=== PATIENT | male | born 1965 | race Caucasian/White ===

== ENCOUNTER 2016-03-21 19:52 | Emergency (ER) | payer MEDICAID ==
[~2016-03-21] VITALS: Ht 190.5 cm; Wt 104.5 kg
[~2016-03-21 19:52] MED LIST: ACET500C4 PO; ANUSHCS PR; APIX5TAB PO; CAPT12.55 PO; CARV6 PO; DIGO125T PO; LOSA25TA21 PO; PALI1.5T PO
[2016-03-21] MEDS ORDERED: PALI78DI IM (20:14)
[2016-03-21 22:14] VITALS: BP 124/71
== END 2016-03-21 22:51 | disposition home or self-care (01) ==
LOC: EMS 20:09
DX: Z76.0 Encounter for issue of repeat prescription (principal); F20.9 Schizophrenia, unspecified; F17.210 Nicotine dependence, cigarettes, uncomplicated; I11.0 Hypertensive heart disease with heart failure; I50.9 Heart failure, unspecified; J44.9 Chronic obstructive pulmonary disease, unspecified; E78.00 Pure hypercholesterolemia, unspecified; Z88.0 Allergy status to penicillin; Z91.040 Latex allergy status
CPT/HCPCS: 99283

== ENCOUNTER 2016-04-16 11:50 | Emergency (ER) | payer MEDICAID ==
[~2016-04-16] VITALS: Ht 182.9 cm; Wt 70.0 kg
[~2016-04-16 11:50] MED LIST changes: -ACET500C4 PO; -ANUSHCS PR; -PALI1.5T PO; +PALI78DI IM
[2016-04-16 13:19] LABS: BASOPHILS % (AUTO) 0.3 % (0.0-2.0); EOSINOPHILS % (AUTO) 0.3 % (1.0-6.0); HEMATOCRIT 44.2 % (41-53); HEMOGLOBIN 14.3 g/dL (13.5-17.5); LYMPHOCYTES # (AUTO) 2.2 K/uL (1.0-4.8); LYMPHOCYTES % (AUTO) 25.6 % (22.0-44.0); MEAN CORPUSCULAR HEMOGLOBIN 30.8 pg (26.0-34.0); MEAN CORPUSCULAR HGB CONC 32.4 G/dL (31.0-37.0); MEAN CORPUSCULAR VOLUME 95 fL (80-100); MONOCYTES # (AUTO) 0.8 K/uL (0.1-1.0); MONOCYTES % (AUTO) 9.1 % (2.0-9.0); NEUTROPHILS # (AUTO) 5.7 K/uL (1.8-7.7); NEUTROPHILS % (AUTO) 64.7 % (40.0-70.0); PLATELET COUNT (AUTO) 208 K/uL (150-450); RED BLOOD CELL COUNT(AUTO) 4.66 MIL/uL (4.50-5.90); RED CELL DISTRIBUTION WIDTH 13.4 % (11.5-14.5); WHITE BLOOD COUNT (AUTO) 8.8 K/uL (4.5-11.0)
[2016-04-16 13:27] LABS: ANION GAP 2 mmol/L (8-16); CALCIUM, TOTAL 8.5 mg/dL (8.8-10.5); CARBON DIOXIDE 31 mmol/L (22-29); CHLORIDE 104 mmol/L (98-107); CREATININE 1.14 mg/dL (0.60-1.30); GLOMERULAR FILTR. RATE CALC > 60 mL/min (>60); POTASSIUM 4.1 mmol/L (3.5-5.1); SODIUM SERUM 137 mmol/L (136-145); UREA NITROGEN, BLOOD 29 mg/dL (7-18)
[2016-04-16 13:31] LABS: INR 1.1 (0.9-1.1); PROTHROMBIN TIME 11.3 SEC (9.4-11.6)
[2016-04-16 13:33] LABS: ALANINE AMINOTRANSFERASE 38 U/L (12-78); ALBUMIN 3.3 g/dL (3.4-5.0); ASPARTATE AMINOTRANSFERASE 16 U/L (15-37); BILIRUBIN,TOTAL 0.8 mg/dL (0.1-1.0); CREATINE KINASE, TOTAL 52 U/L (39-308); TOTAL PROTEIN, SERUM 6.6 g/dL (6.4-8.2)
[2016-04-16 13:36] LABS: B-TYPE NATRIURETIC PEPTIDE 50 pg/mL (0-100)
[2016-04-16 14:25] LABS: APPEARANCE,URINE CLEAR (CLEAR); GLUCOSE, URINE (UA) NEGATIVE (NEGATIVE); KETONES,URINE NEGATIVE (NEGATIVE); LEUKOCYTE ESTERASE ,URINE TRACE (NEGATIVE); OCCULT BLOOD,URINE NEGATIVE (NEGATIVE); PROTEIN,URINE TRACE (NEGATIVE)
[2016-04-16 14:29] LABS: ADD UA MICROSCOPIC YES
[2016-04-16 14:30] LABS: RBC,URINE None Seen /HPF (0-2)
[2016-04-16 14:31] LABS: HYALINE CASTS, URINE 0-2 /LPF (None Seen); SQUAMOUS EPITHELIAL CELL,UR Rare /LPF (None Seen)
[2016-04-16 15:11] VITALS: BP 124/57
== END 2016-04-16 15:41 | disposition home or self-care (01) ==
LOC: EMS 11:52
DX: K62.5 Hemorrhage of anus and rectum (principal); R07.9 Chest pain, unspecified; I11.0 Hypertensive heart disease with heart failure; I50.9 Heart failure, unspecified; E78.00 Pure hypercholesterolemia, unspecified; J44.9 Chronic obstructive pulmonary disease, unspecified; I48.91 Unspecified atrial fibrillation; Z88.0 Allergy status to penicillin; Z91.040 Latex allergy status
CPT/HCPCS: 87086; 93005; 99285

== ENCOUNTER 2016-04-16 21:38 | Inpatient (IN) | payer MEDICAID ==
[~2016-04-16] VITALS: Ht 190.5 cm; Wt 94.8 kg
[2016-04-16 22:23] LABS: BASOPHILS % (AUTO) 0.4 % (0.0-2.0); EOSINOPHILS % (AUTO) 0.7 % (1.0-6.0); HEMOGLOBIN 14.1 g/dL (13.5-17.5); LYMPHOCYTES # (AUTO) 2.7 K/uL (1.0-4.8); LYMPHOCYTES % (AUTO) 28.9 % (22.0-44.0); MEAN CORPUSCULAR HEMOGLOBIN 30.7 pg (26.0-34.0); MEAN CORPUSCULAR HGB CONC 32.1 G/dL (31.0-37.0); MEAN CORPUSCULAR VOLUME 96 fL (80-100); MONOCYTES # (AUTO) 0.8 K/uL (0.1-1.0); MONOCYTES % (AUTO) 8.6 % (2.0-9.0); NEUTROPHILS # (AUTO) 5.8 K/uL (1.8-7.7); NEUTROPHILS % (AUTO) 61.4 % (40.0-70.0); PLATELET COUNT (AUTO) 206 K/uL (150-450); RED BLOOD CELL COUNT(AUTO) 4.61 MIL/uL (4.50-5.90); RED CELL DISTRIBUTION WIDTH 13.3 % (11.5-14.5); WHITE BLOOD COUNT (AUTO) 9.5 K/uL (4.5-11.0)
[2016-04-16 22:35] LABS: ANION GAP 8 mmol/L (8-16); CALCIUM, TOTAL 8.9 mg/dL (8.8-10.5); CARBON DIOXIDE 30 mmol/L (22-29); CHLORIDE 103 mmol/L (98-107); CREATININE 1.38 mg/dL (0.60-1.30); GLOMERULAR FILTR. RATE CALC 55 mL/min (>60); SODIUM SERUM 141 mmol/L (136-145); UREA NITROGEN, BLOOD 35 mg/dL (7-18)
[2016-04-16 22:39] LABS: ALANINE AMINOTRANSFERASE 38 U/L (12-78); ALBUMIN 3.3 g/dL (3.4-5.0); ASPARTATE AMINOTRANSFERASE 16 U/L (15-37); BILIRUBIN,TOTAL 0.5 mg/dL (0.1-1.0); TOTAL PROTEIN, SERUM 6.7 g/dL (6.4-8.2)
[2016-04-16] MEDS ORDERED: DILTIAZEM HCL 5 MG/ML 5 ML VIAL IVP ONE (23:30)
[2016-04-16] MEDS ORDERED: ACETAMINOPHEN 325 MG TABLET PO PRN (23:45)
[2016-04-16] MEDS ORDERED: 0.9% SODIUM CHLORIDE 10 ML SYRINGE IVP PRN (23:45)
[2016-04-16] MEDS ORDERED: ONDANSETRON HCL 4 MG/2 ML VIAL IVP PRN (23:45)
[2016-04-17] VITALS (7 sets, daily range): BP systolic 100–125; BP diastolic 53–64
[2016-04-17] MEDS ORDERED: SODIUM CHLORIDE 0.9% 1,000 ML IV SCH (01:29)
[2016-04-17] MEDS ORDERED: ACETAMINOPHEN 325 MG TABLET PO PRN (01:30)
[2016-04-17] MEDS ORDERED: ONDANSETRON HCL 4 MG/2 ML VIAL IVP PRN (01:30)
[2016-04-17] MEDS ORDERED: ZOLPIDEM TARTRATE 5 MG TABLET PO PRN (01:30)
[2016-04-17] MEDS ORDERED: BISACODYL 10 MG RECTAL RECTAL SUPPOSITORY PR PRN (01:30)
[2016-04-17] MEDS ORDERED: MAGNESIUM HYDROXIDE SUSPENSION 30 ML UDCUP PO PRN (01:30)
[2016-04-17] MEDS: MORPHINE SULFATE 2 MG/ML SYRINGE IVP PRN ×3 (01:56→15:10)
[2016-04-17] MEDS ORDERED: INFLUENZA VIRUS VACCINE QVS 2016-17 (3YR+)/PF 60 MCG/0.5 ML SYRINGE IM ONE (02:00)
[2016-04-17] MEDS ORDERED: -PHARMACY VACCINE NOTE- MISC ONE ×2 (02:00)
[2016-04-17 08:01] LABS: BASOPHILS # (AUTO) 0.03 K/uL (0.00-0.20); BASOPHILS % (AUTO) 0.4 % (0.0-2.0); EOSINOPHILS # (AUTO) 0.04 K/uL (0.00-0.70); EOSINOPHILS % (AUTO) 0.49 % (1.0-6.0); HEMATOCRIT 38.3 % (41-53); HEMOGLOBIN 12.8 g/dL (13.5-17.5); LYMPHOCYTES # (AUTO) 2.5 K/uL (1.0-4.8); MEAN CORPUSCULAR HEMOGLOBIN 31.4 pg (26.0-34.0); MEAN CORPUSCULAR HGB CONC 33.4 G/dL (31.0-37.0); MEAN CORPUSCULAR VOLUME 94 fL (80-100); MONOCYTES # (AUTO) 0.9 K/uL (0.1-1.0); MONOCYTES % (AUTO) 12.4 % (2.0-9.0); NEUTROPHILS # (AUTO) 3.8 K/uL (1.8-7.7); NEUTROPHILS % (AUTO) 52.7 % (40.0-70.0); PLATELET COUNT (AUTO) 175 K/uL (150-450); RED BLOOD CELL COUNT(AUTO) 4.07 MIL/uL (4.50-5.90); WHITE BLOOD COUNT (AUTO) 7.2 K/uL (4.5-11.0)
[2016-04-17 08:13] LABS: ANION GAP 9 mmol/L (8-16); CALCIUM, TOTAL 8.3 mg/dL (8.8-10.5); CARBON DIOXIDE 26 mmol/L (22-29); CHLORIDE 105 mmol/L (98-107); GLOMERULAR FILTR. RATE CALC > 60 mL/min (>60); SODIUM SERUM 140 mmol/L (136-145); UREA NITROGEN, BLOOD 31 mg/dL (7-18)
[2016-04-17 08:16] LABS: DIGOXIN < 0.20 ng/mL (0.90-2.00)
[2016-04-17] MEDS: PANTOPRAZOLE SODIUM 40 MG/VIAL IVP SCH (08:56)
[2016-04-17] MEDS: CARVEDILOL 6.25 MG TABLET PO SCH ×2 (08:58→20:47)
[2016-04-17] MEDS: DIGOXIN 125 MCG TABLET PO SCH (08:58)
[2016-04-17] MEDS ORDERED: LOSARTAN POTASSIUM 25 MG TABLET PO SCH (09:00)
[2016-04-17] MEDS: HYDROCORTISONE 2.5% 30 GM CREAM TP SCH ×2 (17:43→20:47)
[2016-04-17] MEDS: OxyCODONE HCL/ACETAMINOPHEN 5-325 MG TABLET PO PRN (20:47)
[2016-04-18] VITALS (7 sets, daily range): BP systolic 108–125; BP diastolic 62–87
[2016-04-18 06:32] LABS: BASOPHILS % (AUTO) 0.4 % (0.0-2.0); HEMATOCRIT 41.5 % (41-53); HEMOGLOBIN 13.1 g/dL (13.5-17.5); LYMPHOCYTES # (AUTO) 1.7 K/uL (1.0-4.8); LYMPHOCYTES % (AUTO) 26.6 % (22.0-44.0); MEAN CORPUSCULAR HEMOGLOBIN 30.2 pg (26.0-34.0); MEAN CORPUSCULAR HGB CONC 31.5 G/dL (31.0-37.0); MEAN CORPUSCULAR VOLUME 96 fL (80-100); MONOCYTES # (AUTO) 0.8 K/uL (0.1-1.0); NEUTROPHILS # (AUTO) 3.7 K/uL (1.8-7.7); PLATELET COUNT (AUTO) 190 K/uL (150-450); RED BLOOD CELL COUNT(AUTO) 4.32 MIL/uL (4.50-5.90); RED CELL DISTRIBUTION WIDTH 13.6 % (11.5-14.5); WHITE BLOOD COUNT (AUTO) 6.2 K/uL (4.5-11.0)
[2016-04-18 06:41] LABS: PROTHROMBIN TIME 10.9 SEC (9.4-11.6)
[2016-04-18 06:51] LABS: ALANINE AMINOTRANSFERASE 29 U/L (12-78); ALBUMIN 2.8 g/dL (3.4-5.0); ANION GAP 7 mmol/L (8-16); ASPARTATE AMINOTRANSFERASE 13 U/L (15-37); BILIRUBIN,TOTAL 0.4 mg/dL (0.1-1.0); CALCIUM, TOTAL 8.6 mg/dL (8.8-10.5); CARBON DIOXIDE 27 mmol/L (22-29); CHLORIDE 105 mmol/L (98-107); CREATININE 0.74 mg/dL (0.60-1.30); GLOMERULAR FILTR. RATE CALC > 60 mL/min (>60); PHOSPHORUS 3.8 mg/dL (2.5-4.9); POTASSIUM 4.6 mmol/L (3.5-5.1); SODIUM SERUM 139 mmol/L (136-145); TOTAL PROTEIN, SERUM 5.9 g/dL (6.4-8.2); UREA NITROGEN, BLOOD 19 mg/dL (7-18)
[2016-04-18] MEDS: DIGOXIN 125 MCG TABLET PO SCH (08:57)
[2016-04-18] MEDS: CARVEDILOL 6.25 MG TABLET PO SCH ×2 (08:57→21:00)
[2016-04-18] MEDS: HYDROCORTISONE 2.5% 30 GM CREAM TP SCH ×4 (08:57→20:30)
[2016-04-18] MEDS: PANTOPRAZOLE SODIUM 40 MG/VIAL IVP SCH (08:58)
[2016-04-18] MEDS: LOSARTAN POTASSIUM 50 MG TABLET PO SCH (09:09)
[2016-04-18] MEDS: OxyCODONE HCL/ACETAMINOPHEN 5-325 MG TABLET PO PRN (10:17)
[2016-04-18] MEDS: IPRATROPIUM BROMIDE 0.5 MG/2.5 ML NEB SOLUTION NEB PRN ×2 (12:04→19:17)
[2016-04-18] MEDS: ALBUTEROL SULFATE 2.5 MG/0.5 ML NEB SOLUTION NEB PRN ×2 (12:04→19:17)
[2016-04-18] MEDS: MORPHINE SULFATE 2 MG/ML SYRINGE IVP PRN ×2 (15:30→21:20)
[2016-04-18] MEDS ORDERED: PERMETHRIN 5% 60 GM CREAM TP ONE (18:00)
[2016-04-18] MEDS: NICOTINE 21 MG/24 HOUR PATCH TD SCH (20:30)
[2016-04-19] VITALS (7 sets, daily range): BP systolic 103–143; BP diastolic 55–85
[2016-04-19] MEDS: IPRATROPIUM BROMIDE 0.5 MG/2.5 ML NEB SOLUTION NEB PRN ×2 (02:40→09:31)
[2016-04-19] MEDS: ALBUTEROL SULFATE 2.5 MG/0.5 ML NEB SOLUTION NEB PRN ×2 (02:40→09:31)
[2016-04-19 06:29] LABS: BASOPHILS % (AUTO) 0.4 % (0.0-2.0); EOSINOPHILS % (AUTO) 0.6 % (1.0-6.0); HEMATOCRIT 41.5 % (41-53); HEMOGLOBIN 13.4 g/dL (13.5-17.5); LYMPHOCYTES # (AUTO) 1.6 K/uL (1.0-4.8); LYMPHOCYTES % (AUTO) 26.2 % (22.0-44.0); MEAN CORPUSCULAR HEMOGLOBIN 30.6 pg (26.0-34.0); MEAN CORPUSCULAR HGB CONC 32.3 G/dL (31.0-37.0); MEAN CORPUSCULAR VOLUME 95 fL (80-100); MONOCYTES # (AUTO) 0.8 K/uL (0.1-1.0); MONOCYTES % (AUTO) 12.4 % (2.0-9.0); NEUTROPHILS # (AUTO) 3.7 K/uL (1.8-7.7); NEUTROPHILS % (AUTO) 60.4 % (40.0-70.0); PLATELET COUNT (AUTO) 188 K/uL (150-450); RED BLOOD CELL COUNT(AUTO) 4.39 MIL/uL (4.50-5.90); RED CELL DISTRIBUTION WIDTH 13.4 % (11.5-14.5); WHITE BLOOD COUNT (AUTO) 6.2 K/uL (4.5-11.0)
[2016-04-19 06:55] LABS: ALANINE AMINOTRANSFERASE 29 U/L (12-78); ALBUMIN 2.9 g/dL (3.4-5.0); ANION GAP 7 mmol/L (8-16); ASPARTATE AMINOTRANSFERASE 12 U/L (15-37); BILIRUBIN,TOTAL 0.4 mg/dL (0.1-1.0); CALCIUM, TOTAL 8.5 mg/dL (8.8-10.5); CARBON DIOXIDE 29 mmol/L (22-29); CHLORIDE 104 mmol/L (98-107); CREATININE 0.81 mg/dL (0.60-1.30); GLOMERULAR FILTR. RATE CALC > 60 mL/min (>60); SODIUM SERUM 140 mmol/L (136-145); TOTAL PROTEIN, SERUM 6.2 g/dL (6.4-8.2); UREA NITROGEN, BLOOD 15 mg/dL (7-18)
[2016-04-19] MEDS: MORPHINE SULFATE 2 MG/ML SYRINGE IVP PRN ×2 (07:47→17:32)
[2016-04-19] MEDS ORDERED: MAGNESIUM SULFATE 1 GM in DEXTROSE 5%-WATER 50 ML IV ONE (09:00)
[2016-04-19] MEDS: PANTOPRAZOLE SODIUM 40 MG/VIAL IVP SCH (09:18)
[2016-04-19] MEDS: HYDROCORTISONE 2.5% 30 GM CREAM TP SCH ×4 (09:19→20:42)
[2016-04-19] MEDS: CARVEDILOL 6.25 MG TABLET PO SCH (09:19)
[2016-04-19] MEDS: DIGOXIN 125 MCG TABLET PO SCH (09:19)
[2016-04-19] MEDS: NICOTINE 21 MG/24 HOUR PATCH TD SCH (09:19)
[2016-04-19] MEDS: LOSARTAN POTASSIUM 50 MG TABLET PO SCH (09:19)
[2016-04-19] MEDS ORDERED: SODIUM CHLORIDE 0.9% 100 ML ONE (10:07)
[2016-04-19] MEDS: APIXABAN 2.5 MG TABLET PO SCH (20:42)
[2016-04-19] MEDS: CARVEDILOL 12.5 MG TABLET PO SCH (20:42)
[2016-04-20] MEDS: MORPHINE SULFATE 2 MG/ML SYRINGE IVP PRN ×3 (03:30→16:46)
[2016-04-20 04:20] VITALS: BP 103/52
[2016-04-20 06:25] LABS: BASOPHILS % (AUTO) 0.2 % (0.0-2.0); EOSINOPHILS % (AUTO) 0.9 % (1.0-6.0); HEMATOCRIT 44.1 % (41-53); HEMOGLOBIN 14.2 g/dL (13.5-17.5); LYMPHOCYTES # (AUTO) 1.8 K/uL (1.0-4.8); LYMPHOCYTES % (AUTO) 23.8 % (22.0-44.0); MEAN CORPUSCULAR HEMOGLOBIN 30.6 pg (26.0-34.0); MEAN CORPUSCULAR HGB CONC 32.1 G/dL (31.0-37.0); MEAN CORPUSCULAR VOLUME 95 fL (80-100); MONOCYTES # (AUTO) 0.9 K/uL (0.1-1.0); MONOCYTES % (AUTO) 11.9 % (2.0-9.0); NEUTROPHILS # (AUTO) 4.7 K/uL (1.8-7.7); NEUTROPHILS % (AUTO) 63.2 % (40.0-70.0); PLATELET COUNT (AUTO) 196 K/uL (150-450); RED BLOOD CELL COUNT(AUTO) 4.64 MIL/uL (4.50-5.90); RED CELL DISTRIBUTION WIDTH 12.9 % (11.5-14.5); WHITE BLOOD COUNT (AUTO) 7.4 K/uL (4.5-11.0)
[2016-04-20 07:04] LABS: ALANINE AMINOTRANSFERASE 30 U/L (12-78); ANION GAP 6 mmol/L (8-16); ASPARTATE AMINOTRANSFERASE 16 U/L (15-37); BILIRUBIN,TOTAL 0.3 mg/dL (0.1-1.0); CALCIUM, TOTAL 8.6 mg/dL (8.8-10.5); CARBON DIOXIDE 28 mmol/L (22-29); CHLORIDE 104 mmol/L (98-107); CREATININE 0.96 mg/dL (0.60-1.30); GLOMERULAR FILTR. RATE CALC > 60 mL/min (>60); POTASSIUM 4.5 mmol/L (3.5-5.1); SODIUM SERUM 138 mmol/L (136-145); TOTAL PROTEIN, SERUM 6.3 g/dL (6.4-8.2); UREA NITROGEN, BLOOD 20 mg/dL (7-18)
[2016-04-20 08:04] VITALS: BP 110/75
[2016-04-20] MEDS: PANTOPRAZOLE SODIUM 40 MG/VIAL IVP SCH (08:50)
[2016-04-20] MEDS: NICOTINE 21 MG/24 HOUR PATCH TD SCH (08:51)
[2016-04-20] MEDS: LOSARTAN POTASSIUM 50 MG TABLET PO SCH (08:51)
[2016-04-20] MEDS: DIGOXIN 125 MCG TABLET PO SCH (08:51)
[2016-04-20] MEDS: APIXABAN 2.5 MG TABLET PO SCH ×2 (08:51→20:54)
[2016-04-20] MEDS: HYDROCORTISONE 2.5% 30 GM CREAM TP SCH ×4 (08:51→20:54)
[2016-04-20] MEDS: CARVEDILOL 12.5 MG TABLET PO SCH ×2 (08:52→20:54)
[2016-04-20 10:55] VITALS: BP 146/63
[2016-04-20 16:46] VITALS: BP 121/70
[2016-04-20 19:58] VITALS: BP 108/56
[2016-04-20 23:50] VITALS: BP 104/70
[2016-04-21] MEDS: MORPHINE SULFATE 2 MG/ML SYRINGE IVP PRN ×3 (00:45→15:19)
[2016-04-21 04:44] VITALS: BP 107/61
[2016-04-21 07:50] VITALS: BP 100/54
[2016-04-21] MEDS: CARVEDILOL 12.5 MG TABLET PO SCH ×2 (08:42→08:53)
[2016-04-21] MEDS: LOSARTAN POTASSIUM 50 MG TABLET PO SCH (08:43)
[2016-04-21] MEDS: NICOTINE 21 MG/24 HOUR PATCH TD SCH (08:47)
[2016-04-21] MEDS: APIXABAN 2.5 MG TABLET PO SCH (08:47)
[2016-04-21] MEDS: PANTOPRAZOLE SODIUM 40 MG/VIAL IVP SCH (08:47)
[2016-04-21] MEDS: HYDROCORTISONE 2.5% 30 GM CREAM TP SCH ×3 (08:48→15:20)
[2016-04-21] MEDS: DIGOXIN 125 MCG TABLET PO SCH (08:49)
[2016-04-21 11:28] VITALS: BP 119/74
[2016-04-21 15:48] VITALS: BP 120/75
[2016-04-21] MEDS ORDERED: HYDR-4268 (17:24)
== END 2016-04-21 18:15 | disposition home or self-care (01) | DRG 253 ==
LOC: EMS 21:39 → 5N 23:38
PROVIDERS: ADMIT Internal Medicine; ATTEND Internal Medicine
DX: K92.2 Gastrointestinal hemorrhage, unspecified (principal); N17.9 Acute kidney failure, unspecified; I42.0 Dilated cardiomyopathy; I50.22 Chronic systolic (congestive) heart failure; I11.0 Hypertensive heart disease with heart failure; R07.9 Chest pain, unspecified; K64.4 Residual hemorrhoidal skin tags; J44.9 Chronic obstructive pulmonary disease, unspecified; F17.210 Nicotine dependence, cigarettes, uncomplicated; E78.00 Pure hypercholesterolemia, unspecified; F15.90 Other stimulant use, unspecified, uncomplicated; F20.9 Schizophrenia, unspecified; I10 Essential (primary) hypertension; K64.8 Other hemorrhoids; I48.2 Chronic atrial fibrillation; I49.5 Sick sinus syndrome; Z79.899 Other long term (current) drug therapy; Z79.01 Long term (current) use of anticoagulants; Z88.0 Allergy status to penicillin; Z91.040 Latex allergy status; Z95.0 Presence of cardiac pacemaker
CPT/HCPCS: 80307; 82271; 83735; 84100; 90471; 93005; 93306; 94640; 96374; 99285; C9113; G0480; J2270; J2405; J3475; J3490; J7030; J7050; J7060

== ENCOUNTER 2016-04-26 19:19 | Emergency (ER) | payer MEDICAID ==
[~2016-04-26] VITALS: Ht 190.5 cm; Wt 103.6 kg
[~2016-04-26 19:19] MED LIST changes: -CAPT12.55 PO; +HYDR-4268; -PALI78DI IM
[2016-04-26 19:54] VITALS: BP 126/70
[2016-04-26] MEDS ORDERED: DIGO125T87 PO (23:08)
[2016-04-26] MEDS ORDERED: CARV12.530 PO (23:08)
[2016-04-26] MEDS ORDERED: LISI-618 PO (23:08)
== END 2016-04-26 20:32 | disposition left against medical advice (07) ==
LOC: EMS 19:19
DX: Z76.0 Encounter for issue of repeat prescription (principal); Z53.21 Procedure and treatment not carried out due to patient leaving prior to being seen by health care provider

== ENCOUNTER 2016-04-26 22:33 | Emergency (ER) | payer MEDICAID ==
[~2016-04-26] VITALS: Ht 185.4 cm; Wt 109.1 kg
[2016-04-26] MEDS ORDERED: CARV12.530 PO (23:08)
[2016-04-26] MEDS ORDERED: DIGO125T87 PO (23:08)
[2016-04-26] MEDS ORDERED: LISI-618 PO (23:08)
[2016-04-27 01:05] VITALS: BP 124/74
== END 2016-04-27 01:06 | disposition home or self-care (01) ==
LOC: EMS 04-27 00:08
DX: Z76.0 Encounter for issue of repeat prescription (principal); F17.210 Nicotine dependence, cigarettes, uncomplicated; I48.91 Unspecified atrial fibrillation; I50.9 Heart failure, unspecified; J44.9 Chronic obstructive pulmonary disease, unspecified; E78.00 Pure hypercholesterolemia, unspecified; I10 Essential (primary) hypertension; F20.9 Schizophrenia, unspecified; Z88.0 Allergy status to penicillin; Z91.040 Latex allergy status; Z79.899 Other long term (current) drug therapy
CPT/HCPCS: 99281

== ENCOUNTER 2016-06-05 13:14 | Emergency (ER) | payer MEDICAID ==
[~2016-06-05] VITALS: Ht 190.5 cm; Wt 104.5 kg
[~2016-06-05 13:14] MED LIST changes: +CARV12.530 PO; -DIGO125T PO; +DIGO125T87 PO; -HYDR-4268; +LISI-618 PO; -LOSA25TA21 PO
[2016-06-05] MEDS ORDERED: METHOCARBAMOL 500 MG TABLET PO ONE (14:00)
[2016-06-05] MEDS ORDERED: KETOROLAC TROMETHAMINE 60 MG/2 ML VIAL IM ONE (14:00)
[2016-06-05 15:19] VITALS: BP 132/77
== END 2016-06-05 15:21 | disposition home or self-care (01) ==
LOC: EMS 13:16
DX: Z76.0 Encounter for issue of repeat prescription (principal); M54.9 Dorsalgia, unspecified; I11.0 Hypertensive heart disease with heart failure; I50.9 Heart failure, unspecified; I48.91 Unspecified atrial fibrillation; J44.9 Chronic obstructive pulmonary disease, unspecified; E78.00 Pure hypercholesterolemia, unspecified; F20.9 Schizophrenia, unspecified; F17.210 Nicotine dependence, cigarettes, uncomplicated; Z88.0 Allergy status to penicillin; Z95.0 Presence of cardiac pacemaker; Z79.01 Long term (current) use of anticoagulants; Z91.040 Latex allergy status
CPT/HCPCS: 96372; 99283; J1885

== ENCOUNTER 2022-11-05 18:24 | Emergency (ER) | payer MEDICAID ==
[~2022-11-05] VITALS: Ht 190.5 cm; Wt 93.3 kg
[~2022-11-05 18:24] MED LIST changes: +DIGO125T72 PO; -DIGO125T87 PO; -LISI-618 PO; +LISI20TA24 PO
[2022-11-05] MEDS ORDERED: APIX2.5T PO (19:32)
[2022-11-05 21:47] LABS: BASOPHILS % (AUTO) 0.2 % (0.0-2.0); EOSINOPHILS % (AUTO) 0.1 % (1.0-6.0); HEMATOCRIT 46.4 % (41-53); HEMOGLOBIN 14.6 g/dL (13.5-17.5); LYMPHOCYTES # (AUTO) 1.2 K/uL (1.0-4.8); LYMPHOCYTES % (AUTO) 11.3 % (22.0-44.0); MEAN CORPUSCULAR HEMOGLOBIN 28.8 pg (26.0-34.0); MEAN CORPUSCULAR HGB CONC 31.5 G/dL (31.0-37.0); MEAN CORPUSCULAR VOLUME 91 fL (80-100); MONOCYTES # (AUTO) 0.5 K/uL (0.1-1.0); MONOCYTES % (AUTO) 5.2 % (2.0-9.0); NEUTROPHILS # (AUTO) 8.5 K/uL (1.8-7.7); NEUTROPHILS % (AUTO) 83.2 % (40.0-70.0); PLATELET COUNT (AUTO) 174 K/uL (150-450); RED BLOOD CELL COUNT(AUTO) 5.08 MIL/uL (4.50-5.90); RED CELL DISTRIBUTION WIDTH 14.9 % (11.5-14.5); WHITE BLOOD COUNT (AUTO) 10.2 K/uL (4.5-11.0)
[2022-11-05 21:59] LABS: ANION GAP 8 mmol/L (8-16); CALCIUM, TOTAL 9.1 mg/dL (8.8-10.5); CARBON DIOXIDE 28 mmol/L (22-29); CHLORIDE 102 mmol/L (98-107); CREATININE 1.13 mg/dL (0.60-1.30); GLOMERULAR FILTR. RATE CALC > 60 mL/min (>60); GLUCOSE,RANDOM 151 mg/dL (70-110); POTASSIUM 4.9 mmol/L (3.5-5.1); SODIUM SERUM 138 mmol/L (136-145); UREA NITROGEN, BLOOD 27 mg/dL (7-18)
[2022-11-05 22:06] LABS: ALANINE AMINOTRANSFERASE 22 U/L (12-78); ALBUMIN 3.6 g/dL (3.4-5.0); ALKALINE PHOSPHATASE 79 U/L (46-116); ASPARTATE AMINOTRANSFERASE 20 U/L (15-37); BILIRUBIN,TOTAL 0.4 mg/dL (0.1-1.0); TOTAL PROTEIN, SERUM 7.5 g/dL (6.4-8.2)
[2022-11-05 22:07] LABS: DIGOXIN < 0.20 ng/mL (0.90-2.00); TROPONIN I-HIGH SENSITIVITY 16 ng/L (<76)
[2022-11-05 22:08] LABS: B-TYPE NATRIURETIC PEPTIDE 191 pg/mL (0-100)
[2022-11-05 22:11] LABS: ALCOHOL, BLOOD (SERUM) < 3 mg/dL (0-10)
[2022-11-05 22:36] LABS: INR 1.1 (0.9-1.1); PROTHROMBIN TIME 11.8 SEC (9.4-11.6)
[2022-11-05 23:46] VITALS: TEMP 98
[2022-11-06] VITALS: BP 122/63; PULSE 79; RESP 15
[2022-11-06 01:31] LABS: PH,URINE DRUG SCREEN 5.5 (5.0-8.0)
[2022-11-06 01:36] LABS: ALCOHOL, URINE DRUG SCREEN NEGATIVE (NEGATIVE); AMPHET/METH SCREEN,URINE POSITIVE (NEGATIVE); BARBITURATE SCREEN, URINE NEGATIVE (NEGATIVE); BENZODIAZEPINES SCREEN,URINE NEGATIVE (NEGATIVE); CANNABINOID SCREEN,URINE POSITIVE (NEGATIVE); COCAINE SCREEN,URINE NEGATIVE (NEGATIVE); METHADONE SCREEN, URINE NEGATIVE (NEGATIVE); OPIATE SCREEN,URINE NEGATIVE (NEGATIVE); PHENCYCLIDINE SCREEN,URINE NEGATIVE (NEGATIVE)
== END 2022-11-06 01:35 | disposition left against medical advice (07) ==
LOC: EMS 18:24
DX: T40.601A Poisoning by unspecified narcotics, accidental (unintentional), initial encounter (principal); F15.10 Other stimulant abuse, uncomplicated; I48.91 Unspecified atrial fibrillation; Z86.73 Personal history of transient ischemic attack (TIA), and cerebral infarction without residual deficits; I11.0 Hypertensive heart disease with heart failure; I50.9 Heart failure, unspecified; J44.9 Chronic obstructive pulmonary disease, unspecified; F20.9 Schizophrenia, unspecified; F17.210 Nicotine dependence, cigarettes, uncomplicated; Z88.0 Allergy status to penicillin; Z91.040 Latex allergy status; Y92.89 Other specified places as the place of occurrence of the external cause
CPT/HCPCS: 99285; 71045; 80053; 80162; 83880; 84484; 85025; 85610; 85730; 36415; 93005; 80307 ×2; G0480